=== PATIENT | female | born 1960 | race Caucasian/White ===

== ENCOUNTER 2017-07-26 20:59 | Emergency (ER) | payer MEDICAID ==
[~2017-07-26] VITALS: Ht 152.4 cm; Wt 89.5 kg
[~2017-07-26 20:59] MED LIST: ALBU18HF2 INH; CHOL378P8 PO; DULO60CA64 PO; FLUO15CR TP; MELO-102 PO
[2017-07-26] MEDS ORDERED: CLIN150C2 PO (21:35)
[2017-07-26 21:46] VITALS: BP 149/91
== END 2017-07-26 21:49 | disposition home or self-care (01) ==
LOC: ER 21:00
DX: T65.891A Toxic effect of other specified substances, accidental (unintentional), initial encounter (principal); T20.40XA Corrosion of unspecified degree of head, face, and neck, unspecified site, initial encounter; L01.00 Impetigo, unspecified; J45.909 Unspecified asthma, uncomplicated; E10.9 Type 1 diabetes mellitus without complications; Y93.89 Activity, other specified; Y99.8 Other external cause status; Y92.89 Other specified places as the place of occurrence of the external cause
CPT/HCPCS: 99283

== ENCOUNTER 2018-04-01 13:54 | Emergency (ER) | payer MEDICAID ==
[~2018-04-01] VITALS: Ht 152.4 cm; Wt 77.0 kg
[~2018-04-01 13:54] MED LIST changes: +CYCL-1 PO
[2018-04-01 13:58] VITALS: BP 122/72
[2018-04-01] MEDS ORDERED: ketorolac trometh inj. 60 MG/2 ML VIAL IM ONE (14:15)
[2018-04-01] MEDS ORDERED: ketorolac tromethamine 15mg/ml inj. IM ONE (14:15)
[2018-04-01] MEDS ORDERED: CYCL-1 PO (14:30)
== END 2018-04-01 14:48 | disposition home or self-care (01) ==
LOC: ER 13:55
DX: S29.012A Strain of muscle and tendon of back wall of thorax, initial encounter (principal); R05 Cough; J45.909 Unspecified asthma, uncomplicated; X58.XXXA Exposure to other specified factors, initial encounter; Y93.89 Activity, other specified; Y92.89 Other specified places as the place of occurrence of the external cause; Y99.8 Other external cause status
CPT/HCPCS: 71046; 96372; 99284; J1885

== ENCOUNTER 2018-05-22 19:31 | Emergency (ER) | payer MEDICAID ==
[~2018-05-22] VITALS: Ht 152.4 cm; Wt 76.4 kg
[2018-05-22 19:33] VITALS: BP 161/82
[2018-05-22] MEDS ORDERED: ketorolac trometh inj. 60 MG/2 ML VIAL IM ONE (20:25)
[2018-05-22] MEDS ORDERED: DICL50TA8 PO (20:26)
[2018-05-22] MEDS ORDERED: CYCL-1 PO (20:26)
== END 2018-05-22 20:52 | disposition home or self-care (01) ==
LOC: ER 19:32
DX: S13.9XXA Sprain of joints and ligaments of unspecified parts of neck, initial encounter (principal); J45.909 Unspecified asthma, uncomplicated; X58.XXXA Exposure to other specified factors, initial encounter; Y93.89 Activity, other specified; Y92.89 Other specified places as the place of occurrence of the external cause; Y99.8 Other external cause status
CPT/HCPCS: 96372; 99283; J1885

== ENCOUNTER 2018-07-16 09:43 | Emergency (ER) | payer MEDICAID ==
[~2018-07-16] VITALS: Ht 152.4 cm; Wt 75.0 kg
[~2018-07-16 09:43] MED LIST changes: +DICL50TA8 PO
[2018-07-16 09:44] VITALS: BP 104/57
[2018-07-16] MEDS ORDERED: ipratropium/albuterol 3ml nebule NEB ONE (10:05)
[2018-07-16] MEDS ORDERED: AMOX-580 PO (10:20)
[2018-07-16] MEDS ORDERED: ALBU18HF2 INH (10:20)
[2018-07-16] MEDS ORDERED: METH4TAB81 PO (10:20)
== END 2018-07-16 10:31 | disposition home or self-care (01) ==
LOC: ER 09:43
DX: J44.0 Chronic obstructive pulmonary disease with (acute) lower respiratory infection (principal); Z98.890 Other specified postprocedural states; Z79.899 Other long term (current) drug therapy
CPT/HCPCS: 94640; 94760; 99283

== ENCOUNTER 2018-09-04 10:15 | Emergency (ER) | payer MEDICAID ==
[~2018-09-04] VITALS: Ht 154.9 cm; Wt 68.2 kg
[~2018-09-04 10:15] MED LIST changes: +METH4TAB81 PO
[2018-09-04 10:52] VITALS: BP 123/80
[2018-09-04] MEDS ORDERED: AMOX-580 PO (11:44)
== END 2018-09-04 11:51 | disposition home or self-care (01) ==
LOC: ER 10:16
DX: J32.9 Chronic sinusitis, unspecified (principal); J45.909 Unspecified asthma, uncomplicated; E10.9 Type 1 diabetes mellitus without complications; M54.2 Cervicalgia; R53.83 Other fatigue; Z79.899 Other long term (current) drug therapy
CPT/HCPCS: 99283

== ENCOUNTER 2019-08-14 12:05 | Emergency (ER) | payer MEDICAID ==
[~2019-08-14] VITALS: Ht 152.4 cm; Wt 71.6 kg
[~2019-08-14 12:05] MED LIST changes: -DULO60CA64 PO; +DULO60CA65 PO
[2019-08-14 12:17] VITALS: BP 125/78
[2019-08-14] MEDS ORDERED: AZIT-63 PO (12:33)
[2019-08-14] MEDS ORDERED: BENZ-16 PO (12:33)
[2019-08-14] MEDS ORDERED: GUAI120L55 PO (12:34)
== END 2019-08-14 13:06 | disposition home or self-care (01) ==
LOC: ER 12:05
DX: J06.9 Acute upper respiratory infection, unspecified (principal); H92.03 Otalgia, bilateral; J45.909 Unspecified asthma, uncomplicated; Z98.890 Other specified postprocedural states; Z79.899 Other long term (current) drug therapy
CPT/HCPCS: 71045; 99283

== ENCOUNTER 2019-08-26 17:13 | Emergency (ER) | payer MEDICAID ==
[~2019-08-26] VITALS: Ht 152.4 cm; Wt 72.3 kg
[~2019-08-26 17:13] MED LIST changes: +AZIT-63 PO; +BENZ-16 PO; +GUAI120L55 PO
[2019-08-26 19:20] LABS: BASOPHILS % (AUTO) 0.2 % (0-1); EOSINOPHILS % (AUTO) 0.1 % (0-6); HEMATOCRIT 42.9 % (35.0-45.0); HEMOGLOBIN 14.1 g/dl (12.0-16.0); LYMPHOCYTES # (AUTO) 2.2 X10'3 (1.1-4.8); MEAN CORPUSCULAR HEMOGLOBIN 26.1 PG (27.0-31.0); MEAN CORPUSCULAR HGB CONC 32.8 g/dL (33.0-36.5); MEAN CORPUSCULAR VOLUME 79.5 FL (78-98); MEAN PLATELET VOLUME 7.4 FL (7.4-10.4); MONOCYTES # (AUTO) 0.5 X10'3 (0-0.9); MONOCYTES % (AUTO) 5.8 % (2-12); NEUTROPHILS # (AUTO) 6.5 X10'3 (1.8-7.7); NEUTROPHILS % (AUTO) 69.9 % (42-75); PLATELET COUNT 329 X10'3 (140-440); RED CELL DISTRIBUTION WIDTH 15.3 % (11.5-14.5); WHITE BLOOD COUNT 9.3 X10'3 (4.5-11.0)
[2019-08-26 19:30] LABS: ALANINE AMINOTRANSFERASE 25 U/L (12-78); ALBUMIN 3.6 G/DL (3.4-5.0); ALBUMIN/GLOBULIN RATIO 1.2 (1.1-1.5); ALKALINE PHOSPHATASE 69 IU/L (46-116); ANION GAP 10 (8-16); ASPARTATE AMINO TRANSFERASE 20 U/L (10-37); BILIRUBIN,TOTAL 0.5 MG/DL (0.1-1.0); BLOOD UREA NITROGEN 10 MG/DL (7-18); BUN/CREATININE RATIO 13.3 (6.6-38.0); CALCIUM 8.6 MG/DL (8.5-10.1); CHLORIDE 104 MMOL/L (99-107); CREATININE 0.75 MG/DL (0.40-0.90); GLUCOSE 109 MG/DL (70-104); LIPASE 156 U/L (73-393); POTASSIUM 3.7 MMOL/L (3.5-5.1); SODIUM 142 MMOL/L (135-145); TOTAL CARBON DIOXIDE 28.3 MMOL/L (24-32); TOTAL PROTEIN 6.6 G/DL (6.4-8.2); eGFR 80 ML/MIN
[2019-08-26 19:37] LABS: CLARITY,URINE CLEAR (Clear); COLOR,URINE YELLOW (Yellow); GLUCOSE, URINE NEGATIVE (Neg); KETONES,URINE NEGATIVE (Neg); LEUKOCYTE ESTERASE ,URINE NEGATIVE (Neg); NITRITES, URINE NEGATIVE (Neg); OCCULT BLOOD,URINE MODERATE (Neg); PH,URINE 5.5 (4.8-8.0); PROTEIN,URINE NEGATIVE (Neg); UROBILINOGEN,URINE 0.2 E.U/dL (0.2-1.0)
[2019-08-26 19:40] LABS: UA COLLECTION TYPE CLN CATCH MIDSTREAM
[2019-08-26 19:55] LABS: BACTERIA,URINE FEW /HPF (Neg); MUCUS STRANDS MODERATE /LPF (Neg); SQUAMOUS EPITHELIAL CELL,UR FEW /LPF (FEW); WBC,URINE 0-4 /HPF (0-4)
[2019-08-26 19:56] LABS: HYALINE CASTS 0-3 /LPF (NEGATIVE)
[2019-08-26] MEDS ORDERED: ondansetron 4mg rapidly disintigrating tab PO ONE (20:05)
[2019-08-26] MEDS ORDERED: loperamide 2mg capsule PO ONE (20:05)
[2019-08-26] MEDS ORDERED: acetaminophen 325mg tablet PO ONE (20:05)
[2019-08-26] MEDS ORDERED: ketorolac trometh inj. 60 MG/2 ML VIAL IM ONE (20:05)
[2019-08-26] MEDS ORDERED: LOPE2TAB25 PO (20:07)
[2019-08-26] MEDS ORDERED: ONDA8TAB6 PO (20:07)
[2019-08-26 20:51] VITALS: BP 132/64
== END 2019-08-26 20:35 | disposition home or self-care (01) ==
LOC: ER 17:14
DX: K52.9 Noninfective gastroenteritis and colitis, unspecified (principal); J45.909 Unspecified asthma, uncomplicated; Z98.890 Other specified postprocedural states; Z79.2 Long term (current) use of antibiotics; Z79.899 Other long term (current) drug therapy
CPT/HCPCS: 36415; 80053; 81001; 83690; 85025; 96372; 99284; J1885

== ENCOUNTER 2023-02-27 12:18 | Emergency (ER) | payer MEDICAID ==
[~2023-02-27] VITALS: Ht 152.4 cm; Wt 72.2 kg
[~2023-02-27 12:18] MED LIST changes: -AZIT-63 PO; -BENZ-16 PO; +CHOL378P14 PO; -CHOL378P8 PO; +LOPE2TAB25 PO; +ONDA8TAB6 PO
[2023-02-27 12:32] VITALS: BP 152/82; PULSE 75; RESP 16; TEMP 98.1; O2SAT 95
[2023-02-27 12:46] LABS: BASOPHILS % (AUTO) 0.3 % (0-1); EOSINOPHILS # (AUTO) 0.2 X10'3 (0-0.9); EOSINOPHILS % (AUTO) 2.7 % (0-6); HEMATOCRIT 44.6 % (35.0-45.0); HEMOGLOBIN 14.4 g/dl (12.0-16.0); LYMPHOCYTES # (AUTO) 1.5 X10'3 (1.1-4.8); MEAN CORPUSCULAR HGB CONC 32.3 g/dL (33.0-36.5); MEAN CORPUSCULAR VOLUME 80.3 FL (78-98); MEAN PLATELET VOLUME 7.5 FL (7.4-10.4); MONOCYTES # (AUTO) 0.6 X10'3 (0-0.9); NEUTROPHILS # (AUTO) 6.9 X10'3 (1.8-7.7); PLATELET COUNT 225 X10'3 (140-440); RED BLOOD COUNT 5.56 X10'6 (4.20-5.60); RED CELL DISTRIBUTION WIDTH 16.6 % (11.5-14.5); WHITE BLOOD COUNT 9.2 X10'3 (4.5-11.0)
[2023-02-27 13:24] LABS: ALANINE AMINOTRANSFERASE 116 U/L (12-78); ALBUMIN 3.4 G/DL (3.4-5.0); ALBUMIN/GLOBULIN RATIO 1.3 (1.1-1.5); ALKALINE PHOSPHATASE 123 IU/L (46-116); ANION GAP 6 (8-16); ASPARTATE AMINO TRANSFERASE 187 U/L (10-37); BILIRUBIN,TOTAL 1.4 MG/DL (0.1-1.0); BLOOD UREA NITROGEN 10 MG/DL (7-18); BUN/CREATININE RATIO 13.3 (10.0-20.0); CALCIUM 8.6 MG/DL (8.5-10.1); CHLORIDE 103 MMOL/L (99-107); CREATININE 0.75 MG/DL (0.40-0.90); GLUCOSE 114 MG/DL (70-104); POTASSIUM 3.7 MMOL/L (3.5-5.1); SODIUM 137 MMOL/L (135-145); TOTAL CARBON DIOXIDE 27.6 MMOL/L (24-32); eCRCL 57 ML/MIN; eGFR 79 ML/MIN
[2023-02-27 13:31] LABS: PRO BRAIN NATRIURETIC PEPTIDE 78 PG/ML (0-125)
[2023-02-27] MEDS ORDERED: ketorolac tromethamine 15mg/ml inj. IM ONE (16:15)
[2023-02-27] MEDS ORDERED: diazepam inj 5 MG/ML inj. IM ONE (16:15)
[2023-02-27] MEDS ORDERED: CYCL-1 PO (16:36)
[2023-02-27] MEDS ORDERED: NAPR-56 PO (16:36)
== END 2023-02-27 16:48 | disposition home or self-care (01) ==
LOC: ER 12:18
DX: S16.1XXA Strain of muscle, fascia and tendon at neck level, initial encounter (principal); J45.909 Unspecified asthma, uncomplicated; E10.9 Type 1 diabetes mellitus without complications; Z85.72 Personal history of non-Hodgkin lymphomas; Z79.899 Other long term (current) drug therapy; X50.1XXA Overexertion from prolonged static or awkward postures, initial encounter; Y93.89 Activity, other specified; Y92.89 Other specified places as the place of occurrence of the external cause; Y99.8 Other external cause status
CPT/HCPCS: 36415; 71045; 80053; 83880; 84484; 85025; 93005; 96372; 99285; J1885; J3360

== ENCOUNTER 2024-03-07 14:41 | Emergency (ER) | payer MEDICAID ==
[~2024-03-07] VITALS: Ht 162.6 cm; Wt 73.0 kg
[2024-03-07 14:43] VITALS: BP 118/76; PULSE 70; RESP 20; TEMP 97.8; O2SAT 99
--- NOTE | 2024-03-08 10:29 | NUR ---
SPOKE WITH PT, SHE WENT TO SEE HER PMD YESTERDAY.
== END 2024-03-07 16:15 | disposition left against medical advice (07) ==
LOC: ER 14:42
DX: R05.9 Cough, unspecified (principal); Z53.21 Procedure and treatment not carried out due to patient leaving prior to being seen by health care provider

== ENCOUNTER 2024-11-26 12:36 | Emergency (ER) | payer MEDICAID ==
[~2024-11-26] VITALS: Ht 152.4 cm; Wt 60.0 kg
--- NOTE | 2024-11-26 13:04 | Physician Documentation ---
History of Present Illness ~ Stated Complaint: 5149 Time Seen by MD: 12:56 Primary Medical Doctor: Dr. Medardo Mahajan HPI 64-year-old female brought in here for 5150 legal hold for mental evaluation. She is deemed by the police to be danger to others. At the time of my examination patient denies any somatic complaints. She denies any pain. Denies any chest pain, difficulty breathing, nausea, vomiting, diarrhea, abdominal pain. The patient denies any concerns for tobacco, alcohol or illicit substances use Medication Reconciliation Allergies: Coded Allergies: No Known Allergies (Unverified , 11/26/24) Scheduled Albuterol Sulfate (Ventolin Hfa), 2 PUFFS INH Q4HPRN Cholestyramine (with Sugar) (Cholestyramine Powder), 1 PKG PO QAM, (Reported) Cyclobenzaprine* (Cyclobenzaprine*), 1 TAB PO Q8H Duloxetine HCl (Duloxetine HCl), 1 CAP PO HS, (Reported) Loperamide Hcl (Loperamide), 1 TAB PO Q4H Meloxicam (Meloxicam), 1 TAB PO HS, (Reported) Methylprednisolone (Medrol Dosepak), 4 MG PO DAILY Ondansetron Hcl (Zofran), 1 TAB PO Q8H Scheduled PRN Albuterol Sulfate (Ventolin Hfa), 2 PUFFS INH Q6H PRN for SOB or wheezing, (R eported) Cyclobenzaprine* (Cyclobenzaprine*), 1 TABLET PO Q8H PRN for muscle spasms Cyclobenzaprine* (Cyclobenzaprine*), 1 TABLET PO NIGHTLY PRN for muscle spasms Cyclobenzaprine* (Cyclobenzaprine*), 1 TABLET PO Q8H PRN for muscle spasms Diclofenac Sodium (Diclofenac Sodium), 1 TABLET PO BID PRN for pain Fluocinonide (Fluocinonide), TP BID PRN for itching, (Reported) Guaifenesin/Codeine Phosphate (Codeine-Guaifen 10-100 mg/5 ml), 10 ML PO HS PRN for cough and congestion Past Medical History Past Medical History: Asthma, Lymphoma Past Surgical History: abdominal surgery, orthopedic surgeries Other Past Surgical History: pelvic lymph node Patient History: (DM Type1) Diabetes mellitus type 1 FATHER, Onset:Childhood Asthma MOTHER, Onset:60 years & older Cardiac arrest FATHER, Onset:60 years & older Alcohol Use: None Drug Use: none Lives with: Family Lives In: Home Occupation: employed Review of Systems ROS 10 point review of systems was performed and unless noted above in HPI is negative for acute process/complaint. Physical Exam Physical Exam Physical examination: GENERAL: Awake, alert, oriented, GCS 15, no apparent distress, non-toxic appearing, answers questions, follows commands appropriately. HEENT: Atraumatic, normocephalic, pupils equal, extraocular muscles intact Active gross movements, sclerae anicteric, mucus membranes moist, no stridor. NECK: Midline, no JVD CARDIOVASCULAR: Good skin perfusion without evidence of pallor, mottling. PULMONARY: Nonlabored, symmetric chest rise, no audible wheezing, no accessory muscle use, no respiratory distress, speaking in full sentences. GASTROINTESTINAL: Not distended. NEUROLOGIC: Lucid with normal mental status. Normal facial symmetry. Moves all extremities symmetrically and with purpose. No truncal ataxia. Speech is fluid without evidence of dysarthria or aphasia, no focal deficits appreciated. EXTREMITIES: Acute deformities Skin: warm, dry PSYCHIATRIC: Normal affect, normal insight, normal concentration. Focused exam: [] Progress Results/Orders Results/Orders Orders - JULIUS DUARTE DO Med Rec (11/26/24 12:56) 1799.11 (11/26/24 12:56) Close Observation Level (11/26/24 12:56) Covid19 Binax Poc Result Entry (11/26/24 12:56) Substance Use Navigator (11/26/24 12:56) Regular Diet (11/26/24 Dinner) Ct Head (11/26/24 13:20) Behavioral Restraints (11/26/24 14:00) Completed Orders - JULIUS DUARTE DO Cbc/Diff (11/26/24 12:56) Drug Screen, Urine (11/26/24 12:56) Ethanol (11/26/24 12:56) TSH (11/26/24 12:56) BMP (11/26/24 12:56) Ct Head (11/26/24 13:20) Haloperidol Lact. (Haldol) (11/26/24 13:25) Lorazepam Inj (Ativan Inj) (11/26/24 13:25) Ua With Microscopic (11/26/24 13:45) Medications Received in ER Medications (Trade) Dose Ordered Sig/Rolan Route PRN Reason Start Time Stop Time Status Last Admin Dose Admin (Haldol) 5 mg ONCE ONCE IM 11/26/24 13:25 11/26/24 13:26 DC 11/26/24 14:02 5 MG (Ativan inj) 2 mg ONCE ONCE IM 11/26/24 13:25 11/26/24 13:26 DC 11/26/24 14:03 2 MG Vital Signs 11/26/24 11/26/24 13:06 13:35 Temp 97.8 Pulse 62 86 Resp 18 15 B/P (MAP) 144/78 151/82 (105) Pulse Ox 98 100 Laboratory Tests Test 11/26/24 13:06 11/26/24 13:45 White Blood Count 8.7 Red Blood Count 5.35 Hemoglobin 13.6 Hematocrit 42.1 Mean Corpuscular Volume 78.6 Mean Corpuscular Hemoglobin 25.4 L Mean Corpuscular Hemoglobin Concent 32.3 L Red Cell Distribution Width 17.2 H Platelet Count 336 Mean Platelet Volume 7.7 Neutrophils (%) (Auto) 67.2 Lymphocytes (%) (Auto) 24.1 Monocytes (%) (Auto) 4.6 Eosinophils (%) (Auto) 3.4 Basophils (%) (Auto) 0.7 Neutrophils # (Auto) 5.8 Lymphocytes # (Auto) 2.1 Monocytes # (Auto) 0.4 Eosinophils # (Auto) 0.3 Basophils # (Auto) 0.1 CBC Comment Sodium Level 144 Potassium Level 4.0 Chloride Level 107 Carbon Dioxide Level 29.6 Anion Gap 7 L Blood Urea Nitrogen 10 Creatinine 0.76 Estimated GFR/1.73 m2 77 BUN/Creatinine Ratio 13.2 Glucose Level 97 Calcium Level 8.5 Albumin 3.3 L Thyroid Stimulating Hormone (TSH) 0.27 L Chemistry Comments Ethyl Alcohol Level < 10 Urine Specimen Description Cln catch midstream Urine Color Yellow Urine Clarity Clear Urine pH 6.0 Urine Specific [place] 1.025 Urine Protein Negative Urine Glucose (UA) Negative Urine Ketones Negative Urine Occult Blood Small Urine Nitrite Negative Urine Bilirubin Negative Urine Urobilinogen 0.2 Urine Leukocyte Esterase Negative Urine RBC 0-2 Urine WBC 0-4 Urine Squamous Epithelial Cells Few Urine Transitional Epithelial Cells Few Urine Bacteria 1+ Urine Mucus Few Volume Urine Centrifuged 10 ml Urine Comment Urine Opiates Screen Negative Urine Methadone Screen Negative Urine Fentanyl Screen Negative Urine Barbiturates Screen Negative Urine Phencyclidine Screen Negative Urine Amphetamines Screen Positive Urine Benzodiazepines Screen Negative Urine Cocaine Screen Negative Urine Cannabinoids Screen Negative Drug Screen Comment Medical Decision Making Findings Facility Status: ED Holds, RME process The plan was discussed with the patient, who demonstrates clear understanding of the plan and is in agreement with the plan unless otherwise noted in the chart. All questions have been answered, all concerns were addressed unless otherwise documented. I was available throughout their ED stay for frequent reassessment and questions. Differential Diagnoses (considered and possible or likely): [Danger to self, danger to others, gravely disabled, medical clearance for psychiatric evaluation] ??Differential Diagnoses (considered and unlikely, not requiring evaluation currently): [Denies any somatic complaints] MDM Data Please see [facility] for the following: Independent Historians and external Records Review. Historian: [Patient] Independent Historians: ?[worldwide chief creative officer, record review] Medication Management: [Reviewed medication list] Social History and determinants: [Reviewed] Please see the body of the note for the following: Any independent interpretations of ECG, imaging studies. All vitals signs/haemodynamics, ordered tests were independently reviewed and interpreted by myself. Nursing triage complaint and vitals reviewed, additional nursing notes were reviewed as available and I agree unless otherwise noted or documented in contradiction in the chart Vital Signs: Independently reviewed Labs: Independently interpreted Imaging: Independently interpreted Old Medical Records: Independently reviewed, see [facility] for relevant summary and information Pulse Oximetry: [100%] interpreted as [normal on room air] by me Additionally notably showing: [Hemodynamics reviewed. Patient isn't febrile, not tachycardic, noticed hypotension respiratory distress. Laboratory studies for unremarkable. She is positive for amphetamines. UA nondiagnostic for UTI. Imaging was obtained showing no acute intracranial process.] Tests considered but not ordered include: [] Social Determinants of Health Impact: Patient was evaluated in [facility], [facility] [place] access to healthcare due to below par ratio of patient to medical providers. [] Comorbid Conditions Impacting Present Evaluation and Care/Treatment: [] Management Discussions with other Healthcare Providers: [] Treatment and Disposition Medication Management (Given or considered): []. See EMR for details Consideration for Hospitalization/Escalation/Deescalation of Care: Admission for observation has been considered, [however the patient is able to tolerate p.o., their symptoms are controlled, they are able to rely on oral medications, and their chief complaint/diagnosis can be managed on outpatient basis.] ?ED Course:?[Patient is medically cleared for psychiatric evaluation] ?Shared decision making:?[] Code status:?FULL Please see the full Electronic Medical Record for full details of nursing documentation, medications list, other records of complete past medical history and conditions, vital signs, laboratory studies, and any radiologic study interpretations by radiologists. Portions of this note were completed using [employer] dictation software and as a result there may exist minor errors in spelling. I have reviewed elements of past family and social history and agree as included in note. Departure Disposition: 30 STILL A PATIENT Impression: Primary Impression: Encounter for medical screening examination Additional Impressions: Psychiatric problem Acute psychosis Condition: Improved Referrals: NO PRIMARY CARE PROVIDER (PCP) Critical Care Note Critical Care Note CRITICAL CARE TIME: [ Thirty-five] minutes Treatments/Evaluations: Close monitoring and treatment of unstable vital signs, cardiorespiratory, and neurologic status, while maintaining tight balance of fluid, respiratory, and cardiac interventions. This time includes discussing the case with the patient and the patients family. This time does not include all procedures stated elsewhere in this record. This time also includes reviewing old records, labs and radiological studies. This time includes examining and re- examining the patient. Additionally, this time also includes arranging care with admitting and consulting physicians. Signature Scribe Signature: No scribe Attestation: This note accurately reflects clinical decisions, work performed by myself, DO GERALD Alonzo NICHOLAS M DO November 26, 2024 13:04
[2024-11-26 13:23] LABS: BASOPHILS # (AUTO) 0.1 X10'3 (0-0.2); BASOPHILS % (AUTO) 0.7 % (0-1); EOSINOPHILS # (AUTO) 0.3 X10'3 (0-0.9); EOSINOPHILS % (AUTO) 3.4 % (0-6); HEMATOCRIT 42.1 % (35.0-45.0); HEMOGLOBIN 13.6 g/dl (12.0-16.0); LYMPHOCYTES # (AUTO) 2.1 X10'3 (1.1-4.8); LYMPHOCYTES % (AUTO) 24.1 % (21-51); MEAN CORPUSCULAR HEMOGLOBIN 25.4 PG (27.0-31.0); MEAN CORPUSCULAR HGB CONC 32.3 g/dL (33.0-36.5); MEAN CORPUSCULAR VOLUME 78.6 FL (78-98); MEAN PLATELET VOLUME 7.7 FL (7.4-10.4); MONOCYTES # (AUTO) 0.4 X10'3 (0-0.9); MONOCYTES % (AUTO) 4.6 % (2-12); NEUTROPHILS # (AUTO) 5.8 X10'3 (1.8-7.7); NEUTROPHILS % (AUTO) 67.2 % (42-75); PLATELET COUNT 336 X10'3 (140-440); RED BLOOD COUNT 5.35 X10'6 (4.20-5.60); RED CELL DISTRIBUTION WIDTH 17.2 % (11.5-14.5); WHITE BLOOD COUNT 8.7 X10'3 (4.5-11.0)
[2024-11-26 13:54] LABS: ALBUMIN 3.3 G/DL (3.4-5.0); ANION GAP 7 (8-16); BLOOD UREA NITROGEN 10 MG/DL (7-18); BUN/CREATININE RATIO 13.2 (10.0-20.0); CALCIUM 8.5 MG/DL (8.5-10.1); CHLORIDE 107 MMOL/L (99-107); CREATININE 0.76 MG/DL (0.40-0.90); GLUCOSE 97 MG/DL (70-104); SODIUM 144 MMOL/L (135-145); THYROID STIMULATING HORMONE 0.27 ulU/ml (0.34-4.50); TOTAL CARBON DIOXIDE 29.6 MMOL/L (24-32); eCRCL 55 ML/MIN; eGFR 77 ML/MIN
--- NOTE | 2024-11-26 13:59 | RADIOLOGY REPORT ---
EXAM: CT CT HEAD HISTORY: aloc COMPARISON: None TECHNIQUE: Axial images of the head were obtained and reformatted in coronal and sagittal planes. All CT scans at this medical facility are performed using dose modulation techniques as appropriate t o a performed exam including the following: Automated exposure control was utilized; adjustment of th e MA and/or KV according to patient size; and use of iterative reconstruction technique. CT Dose: CTDI volume is 57 mGy. Dose-length product is 1052 mGy*cm FINDINGS: There is no evidence of acute intracranial hemorrhage, mass, mass effect midline shift. There is no h ydrocephalus or extra-axial fluid collection. Castillo-white matter differentiation is maintained. The visualized paranasal sinuses and mastoid air cells are clear. The calvarium is intact. IMPRESSION: 1. No acute intracranial process. HS:Y
[2024-11-26 14:01] LABS: BILIRUBIN,URINE NEGATIVE (Neg); CLARITY,URINE CLEAR (Clear); COLOR,URINE YELLOW (Yellow); GLUCOSE, URINE NEGATIVE (Neg); KETONES,URINE NEGATIVE (Neg); LEUKOCYTE ESTERASE ,URINE NEGATIVE (Neg); NITRITES, URINE NEGATIVE (Neg); OCCULT BLOOD,URINE SMALL (Neg); PROTEIN,URINE NEGATIVE (Neg); UROBILINOGEN,URINE 0.2 E.U/dL (0.2-1.0)
[2024-11-26 14:02] LABS: ETHANOL < 10 MG/DL (<10)
[2024-11-26 14:02] LABS: UA COLLECTION TYPE CLN CATCH MIDSTREAM
[2024-11-26] MEDS: haloperidol lactate 5mg/ml inj IM ONE (14:02)
[2024-11-26] MEDS: LORazepam 2 mg/ml vial IM ONE (14:03)
[2024-11-26 14:10] LABS: BACTERIA,URINE 1+ /HPF (Neg); RBC,URINE 0-2 /HPF (0-2); WBC,URINE 0-4 /HPF (0-4)
[2024-11-26 14:11] LABS: MUCUS STRANDS FEW /LPF (Neg); SQUAMOUS EPITHELIAL CELL,UR FEW /LPF (FEW); TRANSITIONAL EPI CELLS,URINE FEW /HPF
[2024-11-26 14:16] LABS: URINE AMPHETAMINE SCREEN POSITIVE (Neg); URINE BARBITUATE SCREEN NEGATIVE (Neg); URINE BENZODIAZEPINES SCREEN NEGATIVE (Neg); URINE CANNABINOID SCREEN NEGATIVE (Neg); URINE COCAINE SCREEN NEGATIVE (Neg); URINE METHADONE SCREEN NEGATIVE (Neg); URINE OPIATE SCREEN NEGATIVE (Neg); URINE PHENCYCLIDINE SCREEN NEGATIVE (Neg)
[2024-11-27] MEDS ORDERED: TRAZ-251 PO (14:25)
[2024-11-27] MEDS ORDERED: DULO60CA61 PO (14:25)
[2024-11-27] MEDS ORDERED: albuterol 2.5 MG/3 ML nebule NEB PRN (15:00)
[2024-11-27 18:08] VITALS: BP 131/71; PULSE 60; RESP 14; TEMP 97.7; O2SAT 94
[2024-11-27] MEDS ORDERED: traZODone 50mg tablet PO SCH (21:00)
[2024-11-28] MEDS ORDERED: duloxetine 30mg CAPSULE.DR PO SCH (08:00)
== END 2024-11-27 20:46 | disposition left against medical advice (07) ==
LOC: ER 12:36 → EEVIPCON 12:36 → ER 11-27 20:46
DX: Z00.8 Encounter for other general examination (principal); F23 Brief psychotic disorder; J45.909 Unspecified asthma, uncomplicated; M54.2 Cervicalgia; Z79.899 Other long term (current) drug therapy; Z20.822 Contact with and (suspected) exposure to COVID-19
CPT/HCPCS: 36415; 70450; 80048; 80305; 80320; 81001; 84443; 85025; 87811; 96372; 99285; J1630; J2060

== ENCOUNTER 2024-11-28 14:55 | Emergency (ER) | payer MEDICAID ==
[~2024-11-28] VITALS: Ht 152.4 cm; Wt 60.0 kg
[~2024-11-28 14:55] MED LIST changes: -CHOL378P14 PO; -CYCL-1 PO; -DICL50TA8 PO; +DULO60CA61 PO; -DULO60CA65 PO; -FLUO15CR TP; -GUAI120L55 PO; -LOPE2TAB25 PO; -MELO-102 PO; -METH4TAB81 PO; -ONDA8TAB6 PO; +TRAZ-251 PO
--- NOTE | 2024-11-28 15:02 | Physician Documentation ---
History of Present Illness ~ Stated Complaint: MH Time Seen by MD: 15:01 Primary Medical Doctor: Dr. Medardo Mahajan HPI 64 yr old female presents to the ER due to erratic behavior. Evidently she was being transported to an outlying psychiatric hospital when she began to act out, threatening the four horse hitch driver. Police were contacted and evaluated her. Medics evaluated her and found no medical issues. [facility] accepting psych [facility] subsequently took away acceptance. Transporter turned around and brought her here. On exam, the patient reports that she "acts out" when she's anxious and is agreeable to medication for anxiety. Medication Reconciliation Allergies: Coded Allergies: No Known Allergies (Unverified , 11/28/24) Scheduled Duloxetine HCl (Cymbalta), 1 CAP PO DAILY, (Reported) Trazodone HCl (Trazodone HCl), 2 TAB PO HS, (Reported) Scheduled PRN Albuterol Sulfate (Ventolin Hfa), 2 PUFFS INH Q6H PRN for SOB or wheezing, (Reported) Discontinued Medications Albuterol Sulfate (Ventolin Hfa), 2 PUFFS INH Q4HPRN Discontinued Reason: patient no longer taking Cholestyramine (with Sugar) (Cholestyramine Powder), 1 PKG PO QAM, (Reported) Discontinued Reason: patient no longer taking Cyclobenzaprine* (Cyclobenzaprine*), 1 TABLET PO Q8H PRN for muscle spasms Discontinued Reason: patient no longer taking Cyclobenzaprine* (Cyclobenzaprine*), 1 TABLET PO NIGHTLY PRN for muscle spasms Discontinued Reason: patient no longer taking Cyclobenzaprine* (Cyclobenzaprine*), 1 TABLET PO Q8H PRN for muscle spasms Discontinued Reason: patient no longer taking Cyclobenzaprine* (Cyclobenzaprine*), 1 TAB PO Q8H Discontinued Reason: patient no longer taking Diclofenac Sodium (Diclofenac Sodium), 1 TABLET PO BID PRN for pain Discontinued Reason: patient no longer taking Duloxetine HCl (Duloxetine HCl), 1 CAP PO HS, (Reported) Discontinued Reason: Other Fluocinonide (Fluocinonide), TP BID PRN for itching, (Reported) Discontinued Reason: patient no longer taking Guaifenesin/Codeine Phosphate (Codeine-Guaifen 10-100 mg/5 ml), 10 ML PO HS PRN for cough and congestion Discontinued Reason: patient no longer taking Loperamide Hcl (Loperamide), 1 TAB PO Q4H Discontinued Reason: patient no longer taking Meloxicam (Meloxicam), 1 TAB PO HS, (Reported) Discontinued Reason: patient no longer taking Methylprednisolone (Medrol Dosepak), 4 MG PO DAILY Discontinued Reason: patient no longer taking Ondansetron Hcl (Zofran), 1 TAB PO Q8H Discontinued Reason: patient no longer taking Past Medical History Past Medical History: Asthma, Lymphoma Past Surgical History: abdominal surgery, orthopedic surgeries Other Past Surgical History: pelvic lymph node Patient History: (DM Type1) Diabetes mellitus type 1 FATHER, Onset:Childhood Asthma MOTHER, Onset:60 years & older Cardiac arrest FATHER, Onset:60 years & older Alcohol Use: None Drug Use: none Lives with: Family Lives In: Home Occupation: employed Review of Systems ROS As stated above in the HPI, otherwise all systems are reviewed and negative. Physical Exam Physical Exam General: Alert, no apparent distress. Neck: Full range of motion. Respiratory: Lungs clear, no respiratory distress. Chest: No accessory muscle use. Cardiovascular: Regular rate and rhythm, no murmurs. Gastrointestinal: Soft, nontender, nondistended. Bowels sounds present. Extremities: Normal range of motion, no deformity. Neurologic: Oriented x4. Psychiatric: Flat affect on exam. Fair eye contact. Skin: Normal color, warm and dry. Psoriatic rash to elbows and lower extremities. Progress Results/Orders Results/Orders Orders - CAYDEN PEREZ SOLE CEMENTER Clobetasol Propionate Oint (Clobetasol P (11/28/24 20:00) Completed Orders - CAYDEN PEREZ NP Clobetasol Propionate Oint (Clobetasol P (11/28/24 15:16) Lorazepam Tablet (Ativan Tablet) (11/28/24 15:15) Olanzapine Im (Zyprexa I.M. Im On (11/28/24 15:15) Vital Signs 11/28/24 16:09 Temp 97.8 Pulse 61 Resp 16 B/P (MAP) 136/82 Pulse Ox 98 Medical Decision Making Differential Diagnosis [place] cognitive assessment was 20 per the mental health clinician. She denies suicidal ideation. She has meth induced psychosis. Follow up with the primary care provider. Departure Time of Disposition: 16:14 Impression: Primary Impression: Methamphetamine-induced psychotic disorder Condition: Stable Discharge Instructions: Methamphetamines Use Disorder, Psychosis Additional Instructions: Followup with primary care within a week. Return if worse. Referrals: NO PRIMARY CARE PROVIDER (PCP) Education Educated: Patient Educated regarding: diagnosis, treatment, prognosis, need for follow up Signature Scribe Signature: no scribe Attestation: The note accurately reflects work and decisions made by me.Cayden Landa NP 11/28/24 15:11 CAYDEN PEREZ NP November 28, 2024 15:02
[2024-11-28] MEDS ORDERED: LORazepam 1 MG tablet PO ONE (15:15)
[2024-11-28] MEDS ORDERED: OLANZapine **IM** 10 mg inj. IM ONE (15:15)
[2024-11-28] MEDS ORDERED: clobetasol propionate ointment 15gm TP ONE (15:16)
[2024-11-28 16:09] VITALS: BP 136/82; PULSE 61; TEMP 97.8; O2SAT 98
[2024-11-28 17:04] VITALS: RESP 16
[2024-11-28] MEDS ORDERED: clobetasol propionate ointment 15gm TP SCH (20:00)
== END 2024-11-28 17:28 | disposition home or self-care (01) ==
LOC: ER 14:56
DX: F15.959 Other stimulant use, unspecified with stimulant-induced psychotic disorder, unspecified (principal); J45.909 Unspecified asthma, uncomplicated; E11.9 Type 2 diabetes mellitus without complications; Z79.899 Other long term (current) drug therapy; Z98.890 Other specified postprocedural states
CPT/HCPCS: 99285